=== PATIENT | male | born 1995 | race Caucasian/White ===

== ENCOUNTER 2024-03-07 11:20 | Emergency (ER) | payer OTHER ==
[~2024-03-07] VITALS: Ht 175.3 cm; Wt 72.9 kg
[2024-03-07] MEDS ORDERED: WELLTAB38 PO (11:29)
[2024-03-07] MEDS ORDERED: PROZ20CA11 PO (11:29)
[2024-03-07 11:54] LABS: BASO # 0.1 10^3/uL (0.0-0.2); BASO % 0.9 % (0.0-1.0); EOS # 0.1 10^3/uL (0.0-0.5); EOS % 1.4 % (0.0-3.0); HEMATOCRIT 45.9 % (42.0-52.0); HEMOGLOBIN 15.8 g/dl (13.5-17.5); LYMPH # 2.2 10^3/uL (1.5-5.0); LYMPH % 38.3 % (24.0-44.0); MEAN CORPUSCULAR HEMOGLOBIN 29.1 pg (27.0-33.0); MEAN CORPUSCULAR HGB CONC 34.4 g/dl (32.0-36.5); MEAN CORPUSCULAR VOLUME 84.5 fl (80.0-96.0); MONO # 0.5 10^3/uL (0.0-0.8); MONO % 8.1 % (2.0-8.0); PLATELET COUNT, AUTOMATED 314 10^3/uL (150-450); RED BLOOD COUNT 5.43 10^6/uL (4.30-6.10); WHITE BLOOD COUNT 5.8 10^3/uL (4.0-10.0)
[2024-03-07] MEDS: SUCRALFATE SUSP 1GM/10ML UD PO ONE (12:01)
[2024-03-07 12:15] VITALS: BP 120/74; O2SAT 100
[2024-03-07 12:21] LABS: LIPASE 48 U/L (12-53)
[2024-03-07 12:23] LABS: ALBUMIN 4.1 G/DL (3.2-5.2); ALKALINE PHOSPHATASE 60 U/L (46-116); ALT/SGPT 56 U/L (7.0-40); AST/SGOT 20 U/L (<34); BILIRUBIN,DIRECT 0.4 MG/DL (<0.4); BILIRUBIN,TOTAL 1.3 MG/DL (0.3-1.2); BLOOD UREA NITROGEN 18 MG/DL (9-23); CALCIUM LEVEL 9.5 MG/DL (8.5-10.1); CARBON DIOXIDE LEVEL 30 MMOL/L (20-31); CHLORIDE LEVEL 105 MMOL/L (98-107); CK-MB VALUE MASS 1.2 NG/ML (<3.6); CPK CREATINE PHOSPHOKINASE 146 U/L (46-171); CREATININE FOR GFR 1.07 MG/DL (0.70-1.30); GLOMERULAR FILTRATION RATE > 60.0 (>60); GLUCOSE, FASTING 85 MG/DL (60-100); MB/CK RELATIVE INDEX 0.82 (< OR =4); POTASSIUM SERUM 4.4 MMOL/L (3.5-5.1); SODIUM LEVEL 139 MMOL/L (136-145); TOTAL PROTEIN 6.8 G/DL (5.7-8.2)
[2024-03-07] MEDS ORDERED: SUCR1SS PO (12:28)
[2024-03-07] MEDS ORDERED: PEPC1TAB5 PO (12:28)
[2024-03-07 12:37] VITALS: TEMP 97.4
== END 2024-03-07 12:39 | disposition home or self-care (01) ==
LOC: M ED 11:20
DX: R07.9 Chest pain, unspecified (principal); F32.A Depression, unspecified; Z79.899 Other long term (current) drug therapy